=== PATIENT | female | born 1995 | race Caucasian/White ===

== ENCOUNTER 2017-05-09 12:36 | Emergency (ER) | payer OTHER ==
[2017-05-09 13:10] VITALS: BP 152/91; TEMP 100.5; O2SAT 97
--- NOTE | 2017-05-09 13:45 | ED.PDOC ---
History of Present Illness - General Chief Complaint: Fever Stated Complaint: cough and fever Time Seen by Provider: 05/09/17 13:10 Source: patient - History of Present Illness Timing/Duration: other - 36 hrs Fever Severity/Quality: greater than 100.5 F Fever Therapy [employer]: Ibuprofen Associated Symptoms: cough, muscle aches, nausea/vomiting, sore throat, weakness Review of Systems - Review of Systems Constitutional: States: chills, fever, malaise, weakness EENTM: States: nose congestion, throat pain Respiratory: States: cough. Denies: short of breath, wheezing Cardiology: States: no symptoms reported Gastrointestinal/Abdominal: States: abdominal pain, nausea. Denies: diarrhea, vomiting Genitourinary: Denies: dysuria, frequency Musculoskeletal: States: muscle pain Skin: Denies: rash Neurological: Denies: headache, tingling Endocrine: States: no symptoms reported Hematologic/Lymphatic: States: no symptoms reported Past Medical History (General) - Patient Medical History Hx Seizures: No Hx Stroke: No Hx Dementia: No Hx Asthma: No Hx of COPD: No Hx Cardiac Disorders: No Hx Congestive Heart Failure: No Hx Pacemaker: No Hx Hypertension: No Hx Thyroid Disease: No Hx Diabetes: No Hx Gastroesophageal Reflux: No Hx Renal Disease: No Hx of HIV: No Hx MRSA: No Surgical History: other - Vaccination History Hx Tetanus, Diphtheria Vaccination: Yes Hx Influenza Vaccination: Yes Hx Pneumococcal Vaccination: No - Social History Hx Tobacco Use: No Hx Chewing Tobacco Use: No Hx Alcohol Use: No Hx Substance Use: No Hx Substance Use Treatment: No Hx Depression: No Hx Physical Abuse: No Hx Emotional Abuse: No Hx Suspected Abuse: No - Female History Patient is a Female of Child Bearing Age (10 -59 yrs old): Yes Patient : No Expected Date of Delivery:: 03/24/16 Family Medical History - Family History Mother Family History: No Known Physical Exam - Physical Exam General Appearance: Alert, Other - mild distress Eye Exam: bilateral normal ENT Exam: hearing grossly normal, pharynx normal, nasal drainage Neck: non-tender, full range of motion Respiratory: lungs clear, normal breath sounds, no respiratory distress Cardiovascular/Chest: normal peripheral pulses, regular rate, rhythm Gastrointestinal/Abdominal: non tender, soft Extremity: normal range of motion, non-tender, normal inspection Skin Exam: normal color, warm/dry Lymphatic: no adenopathy Departure - Departure Clinical Impression: Influenza Disposition: Discharge to Home or Self Care Departure Forms: ED Discharge - Pt. Copy, Patient Portal Self Enrollment Prescriptions: Oseltamivir Capsule [Tamiflu] 75 mg PO DAILY 10 Days #10 capsule Home Medications: Ambulatory Orders Xonvlohvuofkk-Uzaq-Gpqgatejag [Fioricet] 1 ea PO Q8H PRN #21 tab 03/24/16 Aspirin/Acetaminophen/Caffeine [Excedrin Migraine] 2 tab PO PRN PRN 03/24/16 Ibuprofen 400 mg PO PRN PRN 03/24/16 Oseltamivir Capsule [Tamiflu] 75 mg PO DAILY 10 Days #10 capsule 05/09/17
== END 2017-05-09 15:05 | disposition home or self-care (01) ==
LOC: ER 12:36
DX: J11.1 Influenza due to unidentified influenza virus with other respiratory manifestations (principal)

== ENCOUNTER 2018-02-20 12:37 | Emergency (ER) | payer OTHER ==
[2018-02-20] MEDS ORDERED: ONDANSETRON ODT 8 MG TAB SL ONE (12:55)
[2018-02-20] MEDS ORDERED: VENLAFAXINE HCL TAB 75 MG TAB ONE (13:12)
[2018-02-20 13:13] VITALS: BP 142/82; TEMP 98.5; O2SAT 100
--- NOTE | 2018-02-20 13:31 | ED.PDOC ---
History of Present Illness - General Chief Complaint: GI Problem Time Seen by Provider: 02/20/18 12:40 Source: patient Exam Limitations: no limitations - History of Present Illness Initial Comments: the patient is a 22-year-old female presenting to the emergency room secondary to some mild nausea and vomiting this morning. 2 episodes of clear vomitus. No real abdominal pain. She has reported some episodes of essentially hot flash type symptoms with some mild nausea for the last week. She has, likely not coincidentally, run out of her Effexor in that timeframe. No fever. No real abdominal pain. No constipation. No rash. No sore throat or runny nose. No unusual vaginal discharge. No pelvic pain. No urinary symptoms. She is concerned she might be as she apparently missed her last menstrual cycle. no bleeding. Timing/Duration: unsure Severity: moderate Improving Factors: nothing Worsening Factors: nothing Associated Symptoms: nausea/vomiting Allergies/Adverse Reactions: Allergies Penicillins Allergy (Verified 05/09/17 13:10) Home Medications: Ambulatory Orders Famotidine [Pepcid Tab] 20 mg PO BID #60 tab 02/20/18 Ondansetron [Zofran Odt] 4 mg PO Q4H PRN #10 tab 02/20/18 Venlafaxine HCl [Venlafaxine HCl ER] 37.5 mg PO DAILY 02/20/18 Venlafaxine HCl [Venlafaxine HCl ER] 37.5 mg PO DAILY #30 tab 02/20/18 Review of Systems - Review of Systems Constitutional: States: diaphoresis - ild, malaise EENTM: States: no symptoms reported Respiratory: States: no symptoms reported Cardiology: States: no symptoms reported Gastrointestinal/Abdominal: States: nausea. Denies: abdominal pain, constipation, diarrhea, vomiting Genitourinary: States: no symptoms reported Musculoskeletal: States: no symptoms reported Skin: States: no symptoms reported Neurological: States: anxiety Endocrine: States: no symptoms reported All other Systems: No Change from Baseline Past Medical History (General) - Patient Medical History Hx Seizures: No Hx Stroke: No Hx Dementia: No Hx Asthma: No Hx of COPD: No Hx Cardiac Disorders: No Hx Congestive Heart Failure: No Hx Pacemaker: No Hx Hypertension: No Hx Thyroid Disease: No Hx Diabetes: No Hx Gastroesophageal Reflux: No Hx Renal Disease: No Hx of HIV: No Hx MRSA: No Surgical History: other - Vaccination History Hx Tetanus, Diphtheria Vaccination: Yes Hx Influenza Vaccination: Yes Hx Pneumococcal Vaccination: No - Social History Hx Tobacco Use: No Hx Chewing Tobacco Use: No Hx Alcohol Use: No Hx Substance Use: No Hx Substance Use Treatment: No Hx Depression: No Hx Physical Abuse: No Hx Emotional Abuse: No Hx Suspected Abuse: No - Female History Hx Last Menstrual Period: 01/05/18 Patient : No Expected Date of Delivery:: 03/24/16 Family Medical History - Family History Mother Family History: No Known Physical Exam - Physical Exam General Appearance: Alert, Comfortable, No apparent distress Eye Exam: bilateral normal Ears, Nose, Throat: hearing grossly normal, normal ENT inspection, normal pharynx Neck: full range of motion, supple, normal inspection Respiratory: lungs clear, normal breath sounds, no respiratory distress, no accessory muscle use Cardiovascular/Chest: normal peripheral pulses, regular rate, rhythm, no edema Peripheral Pulses: radial,right: 2+, radial,left: 2+, dorsalis pedis,right: 2+, dorsalis pedis,left: 2+ Gastrointestinal/Abdominal: non tender, soft Rectal Exam: deferred Back Exam: normal inspection, no CVA tenderness Extremity: normal range of motion, non-tender, normal inspection, no pedal edema , normal capillary refill Neurologic: mail rider II-XII nml as tested, no motor/sensory deficits, alert, normal mood/affect, oriented x 3 Skin Exam: normal color - multiple tattoos Comments: Vital Signs - 24 hr 02/20/18 12:43 Temperature 98.5 F Pulse Rate [ 103 H right brachial] Respiratory 20 Rate Blood Pressure 142/82 [right brachial ] O2 Sat by Pulse 100 Oximetry PCR flu test is negative. Laboratory Results - last 24 hr 02/20/18 02/20/18 12:56 12:58 Urine Color Yellow Urine Appearance Clear Urine pH 6.0 Ur Specific [place] 1.010 Urine Protein Negative Urine Glucose (UA) Negative Urine Ketones Negative Urine Blood Negative Urine Nitrite Negative Urine Bilirubin Negative Urine Urobilinogen 0.2 Ur Leukocyte Esterase Negative Urine RBC 0 Urine WBC 0 Ur Epithelial Cells 5-10 Urine Bacteria Rare Urine HCG, Qual Negative Progress - Progress Progress: 02/20/18 13:33 the patient is a 22-year-old female presenting to the emergency room secondary to some nausea and vomiting today as well as some nonspecific symptoms of the last week. Urine hCG here is negative and urinalysis is clear. She does not have the flu. The patient is currently written for Zofran for as needed use to control any nausea or vomiting. She is also going to be written for Pepcid twice daily for the next month to help reduce any gastritis that may be in the background. She needs to keep herself well hydrated. We will also write her for a month's worth of her Effexor in case her primary care doctor is unable to get her a prescription. It is very possible that some of her symptoms may be due to withdrawal from running out of her Effexor. It may however be unrelated. She does need to keep follow-up with her primary care doctor. ER warnings were given. Departure - Departure Clinical Impression: Vomiting Qualifiers: Vomiting type: unspecified Vomiting Intractability: non-intractable Nausea presence: with nausea Qualified Code(s): R11.2 - Nausea with vomiting, unspecified Disposition: Discharge to Home or Self Care Condition: Fair Departure Forms: ED Discharge - Pt. Copy, Patient Portal Self Enrollment Instructions: DI for Gastritis Diet: bland diet Activity: increase activity as tolerated Referrals: Shae Raines MD [Primary Care Provider] - 1-2 Weeks Prescriptions: Famotidine [Pepcid Tab] 20 mg PO BID #60 tab Ondansetron [Zofran Odt] 4 mg PO Q4H PRN #10 tab PRN Reason: Vomiting Venlafaxine HCl [Venlafaxine HCl ER] 37.5 mg PO DAILY #30 tab Home Medications: Ambulatory Orders Famotidine [Pepcid Tab] 20 mg PO BID #60 tab 02/20/18 Ondansetron [Zofran Odt] 4 mg PO Q4H PRN #10 tab 02/20/18 Venlafaxine HCl [Venlafaxine HCl ER] 37.5 mg PO DAILY 02/20/18 Venlafaxine HCl [Venlafaxine HCl ER] 37.5 mg PO DAILY #30 tab 02/20/18 Additional Instructions: the patient is a 22-year-old female presenting to the emergency room secondary to some nausea and vomiting today as well as some nonspecific symptoms of the last week. Urine hCG here is negative and urinalysis is clear. She does not have the flu. The patient is currently written for Zofran for as needed use to control any nausea or vomiting. She is also going to be written for Pepcid twice daily for the next month to help reduce any gastritis that may be in the background. She needs to keep herself well hydrated. We will also write her for a month's worth of her Effexor in case her primary care doctor is unable to get her a prescription. It is very possible that some of her symptoms may be due to withdrawal from running out of her Effexor. It may however be unrelated. She does need to keep follow-up with her primary care doctor. ER warnings were given.
[2018-02-21] MEDS ORDERED: VENLAFAXINE XR 75 MG CAP PO SCH (07:30)
[2018-02-21] MEDS ORDERED: VENLAFAXINE XR 75 MG CAP PO ONE (13:06)
== END 2018-02-20 13:37 | disposition left against medical advice (07) ==
LOC: ER 12:37
DX: R11.2 Nausea with vomiting, unspecified (principal); Z88.0 Allergy status to penicillin; Z32.02 Encounter for pregnancy test, result negative

== ENCOUNTER 2018-10-10 07:35 | Emergency (ER) | payer OTHER ==
[2018-10-10 07:48] VITALS: TEMP 98
--- NOTE | 2018-10-10 08:24 | ED.PDOC ---
History of Present Illness - General Chief Complaint: General Stated Complaint: nasal congestion Time Seen by Provider: 10/10/18 07:41 Exam Limitations: no limitations - History of Present Illness Initial Comments: Celia Vega 23 y/o female came to ER with nasal congestion achy throat for 2 days;No fever or chills no uterine contractions.Has history of asthma.She is presently 39 weeks LMP 22 Jan 2019 Ab0.Has regular care with her OB. Timing/Duration: other - see hpi Severity: moderate Improving Factors: nothing Worsening Factors: nothing Associated Symptoms: other - see hpi Allergies/Adverse Reactions: Allergies Penicillins Allergy (Verified 10/10/18 07:48) Unknown Home Medications: Ambulatory Orders Albuterol Inhaler [Ventolin Hfa Inhaler] 2 puff INH Q4H PRN 10/10/18 Pantoprazole Tablet [Protonix] 40 mg PO ACBK 10/10/18 Vit W/ Ferrous Fumara [] 1 tab PO DAILY 10/10/18 Sertraline HCl [Zoloft] 25 mg PO DAILY 10/10/18 Review of Systems - Review of Systems EENTM: States: see HPI, nose congestion, throat pain All other Systems: Reviewed and Negative, No Change from Baseline Past Medical History (General) - Patient Medical History Hx Seizures: No Hx Stroke: No Hx Dementia: No Hx Asthma: Yes Hx of COPD: No Hx Cardiac Disorders: No Hx Congestive Heart Failure: No Hx Pacemaker: No Hx Hypertension: No Hx Thyroid Disease: No Hx Diabetes: No Hx Gastroesophageal Reflux: No Hx Renal Disease: No Hx of HIV: No Hx MRSA: No Surgical History: other - foot surgery - Vaccination History Hx Tetanus, Diphtheria Vaccination: Yes Hx Influenza Vaccination: Yes - 2018 Hx Pneumococcal Vaccination: No - Social History Hx Tobacco Use: No Hx Chewing Tobacco Use: No Hx Alcohol Use: No Hx Substance Use: No Hx Substance Use Treatment: No Hx Depression: No Hx Physical Abuse: No Hx Emotional Abuse: No Hx Suspected Abuse: No - Female History Patient is a Female of Child Bearing Age (10 -59 yrs old): Yes Hx Last Menstrual Period: 01/05/18 Patient : Yes - G3, P2 Expected Date of Delivery:: 10/16/18 Family Medical History - Family History Mother Family History: No Known Living Status: Still Living Hx Family Asthma: Yes Physical Exam - Physical Exam General Appearance: Alert, Comfortable, No apparent distress Eye Exam: bilateral normal Ears, Nose, Throat: hearing grossly normal, normal ENT inspection Neck: supple, normal inspection Respiratory: lungs clear, no respiratory distress Cardiovascular/Chest: normal peripheral pulses, regular rate, rhythm, no murmur Peripheral Pulses: radial,right: 2+, radial,left: 2+ Gastrointestinal/Abdominal: non tender, soft, other - gravid uterus [id number] cms Back Exam: no CVA tenderness, no vertebral tenderness Extremity: no pedal edema, no calf tenderness Neurologic: alert, oriented x 3 Skin Exam: normal color, warm/dry Progress - Progress Progress: 10/10/18 08:42 10/10/18 08:21 STREP A SCREEN CULTURE Stat Laboratory Results - last 24 hr 10/10/18 08:21 Group A Strep Rapid Negative Vital Signs - 8 hr 10/10/18 07:42 Temperature 98.0 F Pulse Rate [ 93 H Left Radial] Respiratory 20 Rate Blood Pressure 115/79 [Left Arm] O2 Sat by Pulse 99 Oximetry 10/10/18 08:42 Discuss test result with patient Departure - Departure Clinical Impression: Rhinitis, allergic Qualifiers: Allergic rhinitis trigger: unspecified Allergic rhinitis seasonality: seasonal Qualified Code(s): J30.2 - Other seasonal allergic rhinitis Time of Disposition: 08:43 Disposition: Discharge to Home or Self Care Departure Forms: ED Discharge - Pt. Copy, Patient Portal Self Enrollment Instructions: How to Do a Nasal Rinse Referrals: Navarro Cabrales MD [Primary Care Provider] - 1-2 Weeks Home Medications: Ambulatory Orders Albuterol Inhaler [Ventolin Hfa Inhaler] 2 puff INH Q4H PRN 10/10/18 Pantoprazole Tablet [Protonix] 40 mg PO ACBK 10/10/18 Vit W/ Ferrous Fumara [] 1 tab PO DAILY 10/10/18 Sertraline HCl [Zoloft] 25 mg PO DAILY 10/10/18 Additional Instructions: May take the following over the counter medications:Afrin nose Hoffman 2 sprays each nostril Am/Pm for nasal congestion as needed 3 days on 3 days off;Use nasal saline rinse cleanse the inside of your nose watch it in you tube;Zyrted one tablet daily;Delsym Liquid 1-2 teaspoon am/pm for cough Continue with your asthma medications;For uterine contraction/labor pains go [facility] to [facility] where OB facility is located
[2018-10-10 08:46] VITALS: BP 104/74; O2SAT 98
== END 2018-10-10 08:51 | disposition home or self-care (01) ==
LOC: ER 07:35
DX: O99.89 Other specified diseases and conditions complicating pregnancy, childbirth and the puerperium (principal); J30.2 Other seasonal allergic rhinitis; O99.513 Diseases of the respiratory system complicating pregnancy, third trimester; J45.909 Unspecified asthma, uncomplicated; Z3A.39 39 weeks gestation of pregnancy; Z88.0 Allergy status to penicillin; Z79.899 Other long term (current) drug therapy